=== PATIENT | female | born 1955 | race Caucasian/White ===

== ENCOUNTER 2017-03-02 11:55 | Emergency (ER) | payer MEDICARE, OTHER ==
[~2017-03-02] VITALS: Ht 165.1 cm; Wt 62.1 kg
--- NOTE | 2017-03-02 12:04 | NUR ---
MALAIKA- PICKED UP INFRONT OF AN APARTMENT COMPLEX FOR ALTERED MENATL STATUS. PATIENT RECEIVED AWAKE, HOWEVER CONFUSED, LETHARGIC. PATIENT APPEARS IN NO APPARENT DISTRESS. SATING WELL ON ROOM AIR, PATIENT IS AFEBRILE. CONNECTED PT TO TELE MONITOR. VSS
--- NOTE | 2017-03-02 12:06 | NUR ---
RAY AT BEDSIDE
--- NOTE | 2017-03-02 12:06 | NUR ---
URINE SAMPLE CONNECTED AND SENT TO LAB
[2017-03-02] MEDS ORDERED: NALOXONE PREFILLED SYRINGE 2 MG/2 ML SYRINGE ONE (12:07)
--- NOTE | 2017-03-02 12:09 | NUR ---
NARCA IVP GIVEN PER MD ORDER
--- NOTE | 2017-03-02 12:10 | NUR ---
PATIENT AWAKE, VERBALLY RESPONSIVE. AAO4. VSS
--- NOTE | 2017-03-02 12:11 | NUR ---
CALLED [facility], DR HAIR WAS PAGED.
--- NOTE | 2017-03-02 12:20 | NUR ---
MILL RECORDER AT BEDSIDE
[2017-03-02] MEDS ORDERED: IV NS 0.9% 1,000 ML BAG IV ONE (12:30)
[2017-03-02] MEDS ORDERED: NALOXONE HCL 0.4 MG/ML AMPUL IV ONE (12:30)
[2017-03-02 12:36] LABS: BASOPHILS # (AUTO) 0.1 /CMM (0.0-0.2); BASOPHILS % (AUTO) 1.4 % (0.0-2.0); EOSINOPHILS # (AUTO) 0.2 /CMM (0.0-0.7); EOSINOPHILS % (AUTO) 3.5 % (0.0-6.0); HEMATOCRIT 33 % (33-45); HEMOGLOBIN 11.3 g/dL (11.5-14.8); LYMPHOCYTES # (AUTO) 1.6 /CMM (0.8-4.8); LYMPHOCYTES % (AUTO) 27.5 % (20.0-44.0); MEAN CORPUSCULAR HEMOGLOBIN 30 PG (26.0-33.0); MEAN CORPUSCULAR HGB CONC 34 g/dl (31.0-36.0); MEAN CORPUSCULAR VOLUME 90 fL (82-100); MONOCYTES # (AUTO) 0.4 /CMM (0.1-1.30); MONOCYTES % (AUTO) 6.5 % (2.0-12.0); NEUTROPHILS # (AUTO) 3.6 /CMM (1.8-8.9); NEUTROPHILS % (AUTO) 61.1 % (43.0-81.0); PLATELET COUNT (AUTO) 197 /CMM (150-450); RDW COEFFICIENT OF VARIATION 14.5 (11.5-15.0); RED BLOOD CELL COUNT(AUTO) 3.71 MIL/uL (4.0-5.2); WHITE BLOOD COUNT (AUTO) 5.9 K/uL (4.3-11.0)
[2017-03-02 12:41] LABS: APPEARANCE,URINE Clear (CLEAR); BILIRUBIN,URINE Negative (NEGATIVE); BLOOD, URINE Negative Ery/uL (NEGATIVE); COLOR,URINE Yellow (YELLOW); KETONES,URINE Trace (NEGATIVE); LEUKOCYTE ESTERASE ,URINE Negative (NEGATIVE); NITRITE, URINE Negative (NEGATIVE); PROTEIN,URINE Negative (NEGATIVE); UGLUCOSE 250 MG/DL mg/dL (NEGATIVE); UROBILINOGEN,URINE 0.2 EU/dL (0.2)
[2017-03-02 12:53] LABS: PROTHROMBIN TIME 10.4 SECS (9.5-12.7)
[2017-03-02 12:56] LABS: ALBUMIN 2.8 g/dL (3.4-5.0); BILIRUBIN,TOTAL 0.2 mg/dL (0.2-1.0); CALCIUM, SERUM 7.4 mg/dL (8.5-10.1); CREATININE 1.1 mg/dL (0.6-1.3); TOTAL PROTEIN, SERUM 5.3 g/dL (6.4-8.2)
[2017-03-02 12:58] LABS: POTASSIUM 2.6 mmol/L (3.5-5.1)
[2017-03-02 12:59] LABS: SALICYLATE 1.4 mg/dL (2.8-20.0); TROPONIN I 0.048 ng/mL (0.00-0.056)
[2017-03-02] MEDS ORDERED: POTASSIUM CHLORIDE 20 MEQ TAB.PRT.SR PO ONE ×2 (13:30)
[2017-03-02] MEDS ORDERED: POTASSIUM CL. PREMIX PERIPHER. 50 ML IV SCH (13:30)
[2017-03-02] MEDS ORDERED: RIFA550T PO (13:33)
[2017-03-02] MEDS ORDERED: HYDR4TAB57 PO (13:33)
[2017-03-02] MEDS ORDERED: PANT40TA4 PO (13:33)
[2017-03-02] MEDS ORDERED: ZOLP10TA6 PO (13:33)
[2017-03-02] MEDS ORDERED: HYDR50TA3 PO (13:33)
[2017-03-02] MEDS ORDERED: ONDA8TAB6 PO (13:33)
[2017-03-02] MEDS ORDERED: SPIR50TA3 PO (13:33)
[2017-03-02] MEDS ORDERED: QUET200T PO (13:33)
[2017-03-02] MEDS ORDERED: MONT10TA22 PO (13:33)
[2017-03-02] MEDS ORDERED: ALPR1TAB7 PO (13:33)
[2017-03-02] MEDS ORDERED: IV NS 0.9% 1,000 ML IV PRN (13:52)
[2017-03-02] MEDS ORDERED: MAG HYDROX/AL HYDROX/SIMETH 30 ML UDC PO PRN (14:00)
[2017-03-02] MEDS ORDERED: ZOLPIDEM TARTRATE 5 MG TABLET PO PRN (14:00)
[2017-03-02] MEDS ORDERED: ONDANSETRON HCL/PF 4 MG/2 ML VIAL IVP PRN (14:00)
[2017-03-02] MEDS ORDERED: MAGNESIUM HYDROXIDE 30 ML UDC PO PRN (14:00)
[2017-03-02] MEDS ORDERED: ACETAMINOPHEN 325 MG TABLET PO PRN (14:00)
[2017-03-02] MEDS ORDERED: Z GUARD REMEDY 2 OZ OINT TP PRN (14:00)
[2017-03-02 14:07] VITALS: BP 92/60
--- NOTE | 2017-03-02 14:07 | NUR ---
Patient does not wish to proceed with medical care recommended by Dr. Tim Chirinos. Patient given information related to possible complications, up to and including , which could occur as a result of leaving the hospital at this time. Patient verbalizes understanding of risks involved due to leaving against medical advice. Patient has signed AMA form.
--- NOTE | 2017-03-02 14:10 | NUR ---
IV removed. Catheter intact and site benign. Pressure and 4x4 applied to site. No bleeding noted.
== END 2017-03-02 14:08 | disposition left against medical advice (07) ==
LOC: ER 11:58 → EDBD 11:58 → ER 14:08
DX: T40.601A Poisoning by unspecified narcotics, accidental (unintentional), initial encounter (principal); R41.82 Altered mental status, unspecified; E87.6 Hypokalemia; R94.31 Abnormal electrocardiogram [ECG] [EKG]; Y92.9 Unspecified place or not applicable
CPT/HCPCS: 36415; 70450; 71010; 80048; 80076; 80305; 80329; 81001; 82962; 84484; 85025; 85730; 87081; 93005; 96361; 96374; 99291; A4606; G0480 ×2; J2310; J3480; J7030; 81000-TC; Z7610